=== PATIENT | female | born 1990 | race Caucasian/White ===

== ENCOUNTER → 2017-07-22 | Outpatient (CLI) | payer OTHER ==
[2017-07-22 14:20] LABS: ALBUMIN 3.6 GM/DL (3.2-5.2); ALBUMIN/GLOBULIN RATIO 0.97 (1.00-1.93); ALKALINE PHOSPHATASE 61 U/L (45-117); ALT/SGPT 28 U/L (12-78); ANION GAP 6 MEQ/L (8-16); AST/SGOT 16 U/L (7-37); BILIRUBIN,TOTAL 0.5 MG/DL (0.2-1.0); BLOOD UREA NITROGEN 15 MG/DL (7-18); CALCIUM LEVEL 8.9 MG/DL (8.5-10.1); CARBON DIOXIDE LEVEL 30 MEQ/L (21-32); CHLORIDE LEVEL 100 MEQ/L (98-107); CHOLESTEROL LEVEL 172 MG/DL (<200); CHOLESTEROL RISK RATIO 3.822 (<5); CREATININE FOR GFR 0.52 MG/DL (0.55-1.02); GLOMERULAR FILTRATION RATE > 60.0 (>60); GLUCOSE, FASTING 91 MG/DL (70-105); HDL CHOLESTEROL 45 MG/DL (>40); LDL CHOLESTEROL 93.4 MG/DL (<100); NON-HDL-C 127 MG/DL; POTASSIUM SERUM 4.4 MEQ/L (3.5-5.1); SODIUM LEVEL 136 MEQ/L (136-145); TOTAL PROTEIN 7.3 GM/DL (6.4-8.2); TRIGLYCERIDES LEVEL 168 MG/DL (<150)
== END ==
LOC: M WUC 10:26
DX: I10 Essential (primary) hypertension (principal)
CPT/HCPCS: 80053

== ENCOUNTER → 2018-04-22 | Outpatient (CLI) | payer OTHER ==
[2018-04-22 13:48] LABS: ALBUMIN 3.5 GM/DL (3.2-5.2); ALBUMIN/GLOBULIN RATIO 1.06 (1.00-1.93); ALKALINE PHOSPHATASE 62 U/L (45-117); ALT/SGPT 65 U/L (12-78); ANION GAP 7 MEQ/L (8-16); AST/SGOT 36 U/L (7-37); BILIRUBIN,TOTAL 0.5 MG/DL (0.2-1.0); BLOOD UREA NITROGEN 12 MG/DL (7-18); CALCIUM LEVEL 8.4 MG/DL (8.5-10.1); CARBON DIOXIDE LEVEL 29 MEQ/L (21-32); CHLORIDE LEVEL 101 MEQ/L (98-107); CHOLESTEROL LEVEL 160 MG/DL (<200); CHOLESTEROL RISK RATIO 4.571 (<5); GLOMERULAR FILTRATION RATE > 60.0 (>60); GLUCOSE, FASTING 84 MG/DL (70-100); HDL CHOLESTEROL 35 MG/DL (>40); LDL CHOLESTEROL 78 MG/DL (<100); NON-HDL-C 125 MG/DL; POTASSIUM SERUM 4.4 MEQ/L (3.5-5.1); SODIUM LEVEL 137 MEQ/L (136-145); TOTAL PROTEIN 6.8 GM/DL (6.4-8.2); TRIGLYCERIDES LEVEL 234 MG/DL (<150)
== END ==
LOC: M WUC 10:19
DX: I10 Essential (primary) hypertension (principal)
CPT/HCPCS: 80053

== ENCOUNTER → 2018-06-20 | Outpatient (REF) | payer OTHER ==
[2018-06-20 11:12] LABS: BASO # 0.1 10^3/uL (0.0-0.2); BASO % 0.9 % (0.0-1.0); HEMATOCRIT 40.6 % (36.0-47.0); HEMOGLOBIN 13.4 g/dl (12.0-15.5); IMMATURE GRANULOCYTE % 0.3 % (0-3.0); LYMPH # 3.1 10^3/uL (1.5-6.5); LYMPH % 30.6 % (24.0-44.0); MEAN CORPUSCULAR VOLUME 90.8 fl (80.0-96.0); MONO # 0.9 10^3/uL (0.0-0.8); MONO % 9.2 % (0.0-5.0); PLATELET COUNT, AUTOMATED 352 10^3/uL (150-450); RED BLOOD COUNT 4.47 10^6/uL (4.00-5.40); RED CELL DISTRIBUTION WIDTH 13.2 % (11.5-14.5); WHITE BLOOD COUNT 10.2 10^3/uL (4.0-10.0)
== END ==
LOC: M LAB REF 09:15
DX: R05 Cough (principal); R09.1 Pleurisy
CPT/HCPCS: 85025

== ENCOUNTER → 2018-06-20 | Outpatient (CLI) | payer OTHER | LOC: M ADAMS 08:39 | DX: R91.8 Other nonspecific abnormal finding of lung field (principal); R05 Cough; R09.1 Pleurisy | CPT/HCPCS: 71046 ==

== ENCOUNTER → 2019-06-06 | Outpatient (CLI) | payer OTHER ==
[~2019-06-06] MED LIST: ALBU8.5H; AMOX875T; CITA20TA6 PO; LABE10TAB PO; ZOLO25TA; ZOLO50TA
[2019-06-06 13:47] LABS: BASO % 0.4 % (0.0-1.0); HEMATOCRIT 35.5 % (36.0-47.0); HEMOGLOBIN 11.9 g/dl (12.0-15.5); LYMPH # 2.2 10^3/uL (1.5-5.0); MEAN CORPUSCULAR HEMOGLOBIN 29.8 pg (27.0-33.0); MEAN CORPUSCULAR HGB CONC 33.5 g/dl (32.0-36.5); MEAN CORPUSCULAR VOLUME 88.8 fl (80.0-96.0); MONO % 10.7 % (0.0-5.0); NEUTROPHILS # 5.9 10^3/uL (1.5-8.5); NEUTROPHILS % 64.7 % (36.0-66.0); PLATELET COUNT, AUTOMATED 364 10^3/uL (150-450); WHITE BLOOD COUNT 9.1 10^3/uL (4.0-10.0)
[2019-06-06 13:52] LABS: ALT/SGPT 21 U/L (12-78); BILIRUBIN,TOTAL 0.5 MG/DL (0.2-1.0); CREATININE FOR GFR 0.48 MG/DL (0.55-1.30); GLOMERULAR FILTRATION RATE > 60.0 (>60); LDH LACTATE DEHYDROGENASE 133 U/L (84-246); URIC ACID 2.9 MG/DL (2.6-6.0)
[2019-06-06 14:10] LABS: CREATININE,RANDOM URINE 65.4 MG/DL; TOTAL PROTEIN,RANDOM URINE 6.6 MG/DL (0.0-12.0)
[2019-06-06 16:37] LABS: CHLAMYDIA DNA AMPLIFICATION NEGATIVE (NEGATIVE); GC DNA AMPLIFICATION NEGATIVE (NEGATIVE)
[2019-06-07 10:18] LABS: HIV 1&2 SCREEN CENTAUR NEGATIVE (NEGATIVE)
[2019-06-07 11:48] LABS: RUBELLA IgG QUALITATIVE IMMUNE (IMMUNE)
== END ==
LOC: M SMT 10:37
PROVIDERS: ATTEND Advanced Practice Midwife
DX: O10.011 Pre-existing essential hypertension complicating pregnancy, first trimester (principal); Z3A.10 10 weeks gestation of pregnancy

== ENCOUNTER → 2019-08-15 | Outpatient (CLI) | payer OTHER ==
--- NOTE | 2019-08-16 05:04 | REP ---
Clinical: Anatomical evaluation. Comparison: 06/01/2019 . Findings: Examination demonstrates a single live intrauterine in transverse (head to maternal right) presentation. motion is identified by technologist. Placenta is noted anterior and grade I without evidence for placenta previa or abruption. Amniotic fluid volume is normal. Cervix measures 3.2 cm in length and appears closed. No evidence for nuchal cord. Gestational age by LMP 20 weeks 0 days with HI 01/02/2020 . Gestational age by current measurements 19 weeks 1 day with HI 01/09/2020 . FHR equals 153 beats per minute. BPD 4.5 cm 19 weeks 4 days HC 17.0 cm 19 weeks 4 days AC 13.8 cm 19 weeks 2 days FL 3.0 cm 19 weeks 1 day HL 3.0 cm 19 weeks 5 days HC/AC ratio 1.23 Estimated weight 282 grams ( 22nd percentile). Anatomical assessment demonstrates normal structures including cranium, choroid plexus, cavum, cerebellum/posterior fossa, ventricular outflow tracts, diaphragm, stomach, cord insertion/three-vessel cord, kidneys/bladder, spine, and extremities. Impression: 1. Single live intrauterine in transverse lie demonstrating appropriate interval growth. 2. Limited evaluation of the four-chamber heart and facial features.
== END ==
LOC: M WHC 10:52
PROVIDERS: ATTEND Advanced Practice Midwife
DX: Z34.92 Encounter for supervision of normal pregnancy, unspecified, second trimester (principal); Z3A.19 19 weeks gestation of pregnancy

== ENCOUNTER → 2019-08-18 | Outpatient (CLI) | payer OTHER | LOC: M PLALAB 12:07 | PROVIDERS: ATTEND Advanced Practice Midwife | DX: Z34.82 Encounter for supervision of other normal pregnancy, second trimester (principal) ==

== ENCOUNTER → 2019-09-01 | Outpatient (CLI) | payer OTHER ==
--- NOTE | 2019-09-01 10:56 | REP ---
Clinical: Anatomical evaluation. Comparison: 08/15/2019 Findings: Examination demonstrates a single live intrauterine in breech presentation. motion is identified by technologist. Placenta is noted anterior and grade zero without evidence for placenta previa or abruption. Amniotic fluid volume is normal. Cervix measures 4.2 cm in length and appears closed. No evidence for nuchal cord. Gestational age by LMP 22 weeks 3 days with HI 01/02/2020 . Gestational age by current measurements 22 weeks 0 days with HI 01/05/2020 . FHR equals 151 beats per minute. Estimated weight 480 grams ( 36th percentile). Anatomical assessment demonstrates four-chamber heart views. Impression: Single live intrauterine in breech presentation demonstrating appropriate interval growth. In conjunction with prior examination anatomical assessment is complete and normal.
== END ==
LOC: M WHC 09:07
PROVIDERS: ATTEND Advanced Practice Midwife
DX: O10.012 Pre-existing essential hypertension complicating pregnancy, second trimester (principal); Z3A.22 22 weeks gestation of pregnancy; O32.1XX0 Maternal care for breech presentation, not applicable or unspecified

== ENCOUNTER → 2019-10-04 | Outpatient (REF) | payer OTHER ==
[2019-10-04 13:41] LABS: HEMATOCRIT 31.8 % (36.0-47.0); HEMOGLOBIN 10.5 g/dl (12.0-15.5); MEAN CORPUSCULAR HEMOGLOBIN 30.5 pg (27.0-33.0); MEAN CORPUSCULAR VOLUME 92.4 fl (80.0-96.0); PLATELET COUNT, AUTOMATED 296 10^3/uL (150-450); RED BLOOD COUNT 3.44 10^6/uL (4.00-5.40); WHITE BLOOD COUNT 11.5 10^3/uL (4.0-10.0)
== END ==
LOC: M PLALAB 11:43
PROVIDERS: ATTEND Advanced Practice Midwife
DX: Z36.89 Encounter for other specified antenatal screening (principal)

== ENCOUNTER → 2019-10-11 | Outpatient (CLI) | payer OTHER | LOC: M LAB 06:58 | PROVIDERS: ATTEND Advanced Practice Midwife | DX: Z36.89 Encounter for other specified antenatal screening (principal) ==

== ENCOUNTER → 2019-10-24 | Outpatient (REF) | payer OTHER ==
[2019-10-24 17:49] LABS: APPEARANCE, URINE CLEAR (CLEAR); BACTERIA, URINE AUTO 1+ (NEGATIVE); BILIRUBIN, URINE AUTO NEGATIVE (NEGATIVE); BLOOD, URINE BLOOD NEGATIVE (NEGATIVE); COLOR, URINE YELLOW (YELLOW); GLUCOSE, URINE (UA) AUTO NEGATIVE (NEGATIVE); KETONE, URINE AUTO NEGATIVE (NEGATIVE); LEUKOCYTE ESTERASE, URINE AUTO NEGATIVE (NEGATIVE); NITRITE, URINE AUTO NEGATIVE (NEGATIVE); PROTEIN, URINE AUTO NEGATIVE (NEGATIVE); RBC, URINE AUTO 0 /HPF (0-3); SPECIFIC GRAVITY URINE AUTO 1.006 (1.002-1.035); SQUAMOUS EPITHELIAL CELL UR AU 1 /HPF (0-6); UROBILINOGEN, URINE AUTO 0.2 mg/dL (0.0-2.0); WBC, URINE AUTO 0 /HPF (0-3)
== END ==
LOC: M PLALAB 14:02
PROVIDERS: ATTEND Advanced Practice Midwife
DX: R30.9 Painful micturition, unspecified (principal)

== ENCOUNTER → 2019-10-30 | Outpatient (REF) | payer OTHER ==
[2019-10-30 15:43] LABS: HEMOGLOBIN 10.9 g/dl (12.0-15.5); MEAN CORPUSCULAR HEMOGLOBIN 29.9 pg (27.0-33.0); MEAN CORPUSCULAR VOLUME 90.7 fl (80.0-96.0); PLATELET COUNT, AUTOMATED 290 10^3/uL (150-450); RED BLOOD COUNT 3.64 10^6/uL (4.00-5.40); WHITE BLOOD COUNT 10.8 10^3/uL (4.0-10.0)
[2019-10-30 15:51] LABS: ALBUMIN 2.8 GM/DL (3.2-5.2); BILIRUBIN,DIRECT 0.1 MG/DL (0.0-0.2); BILIRUBIN,TOTAL 0.5 MG/DL (0.2-1.0); TOTAL PROTEIN 6.6 GM/DL (6.4-8.2)
== END ==
LOC: M PLALAB 11:45
PROVIDERS: ATTEND Advanced Practice Midwife
DX: O10.013 Pre-existing essential hypertension complicating pregnancy, third trimester (principal); O26.893 Other specified pregnancy related conditions, third trimester; R21 Rash and other nonspecific skin eruption; Z3A.00 Weeks of gestation of pregnancy not specified

== ENCOUNTER → 2019-11-07 | Outpatient (CLI) | payer OTHER ==
--- NOTE | 2019-11-08 04:36 | REP ---
Clinical: Growth evaluation. Comparison: 09/01/2019 . Findings: Examination demonstrates a single live intrauterine in breech presentation. motion is identified by technologist. Placenta is noted anterior and grade I I without evidence for placenta previa or abruption. Amniotic fluid volume is normal. Cervix measures 3.4 cm in length and appears closed. No evidence for nuchal cord. Gestational age by LMP 32 weeks 0 days with HI 01/02/2020 . Gestational age by current measurements 31 weeks 6 days with HI 01/03/2020 . FHR equals 142 beats per minute. Amniotic fluid index: 14.9 cm Estimated weight by current biometrical measurements 1982 grams ( 53rd percentile). Impression: Single live advanced gestation in breech presentation demonstrating appropriate estimated weight/growth. Amniotic fluid volume normal.
== END ==
LOC: M WHC 11:25
PROVIDERS: ATTEND Advanced Practice Midwife
DX: O10.013 Pre-existing essential hypertension complicating pregnancy, third trimester (principal)

== ENCOUNTER → 2019-11-28 | Outpatient (CLI) | payer OTHER ==
--- NOTE | 2019-11-29 02:53 | REP ---
Clinical: Anatomical evaluation. Comparison: Growth 11/07/2019 . Findings: Examination demonstrates a single live intrauterine in cephalic presentation. motion is identified by technologist. Placenta is noted anterior and grade I I I without evidence for placenta previa or abruption. Amniotic fluid volume is normal. Cervix measures 3.3 cm in length and appears closed. No evidence for nuchal cord. Gestational age by LMP 35 weeks 0 days with HI 01/02/2020 . Gestational age by current measurements 34 weeks 5 days with HI 01/04/2020 . FHR equals 134 beats per minute. Amniotic fluid index: 13.5 cm Estimated weight 2600 grams ( 50th percentile). Impression: Single live advanced gestation in cephalic presentation demonstrating appropriate estimated weight and growth.
== END ==
LOC: M WHC 10:58
PROVIDERS: ATTEND Advanced Practice Midwife
DX: O10.013 Pre-existing essential hypertension complicating pregnancy, third trimester (principal); Z3A.34 34 weeks gestation of pregnancy

== ENCOUNTER → 2019-12-19 | Outpatient (CLI) | payer OTHER ==
[~2019-12-19] MED LIST changes: +ASPI81CH33 PO; +OMEP-218 PO; +PRENTAB9 PO
--- NOTE | 2019-12-19 18:31 | REP ---
Clinical: Growth evaluation Comparison: 11/28/2019 . Findings: Examination demonstrates a single live intrauterine in cephalic presentation. motion is identified by technologist. Placenta is noted anterior and grade I I I without evidence for placenta previa or abruption. Amniotic fluid volume is normal. Cervix measures 3.1 cm in length and appears closed. No evidence for nuchal cord. Gestational age by LMP 38 weeks 0 days with HI 01/02/2020 . Gestational age by current measurements 37 weeks 2 days with HI 01/07/2020 . FHR equals 152 beats per minute. Amniotic fluid index: 15.6 cm Estimated weight 3460 grams ( 63rd percentile). Impression: Single live advanced gestation in cephalic presentation demonstrating appropriate interval growth. No gross abnormalities are identified.
== END ==
LOC: M WHC 11:03
PROVIDERS: ATTEND Advanced Practice Midwife
DX: O10.013 Pre-existing essential hypertension complicating pregnancy, third trimester (principal); Z3A.38 38 weeks gestation of pregnancy

== ENCOUNTER 2019-12-20 11:08 | Inpatient (IN) | payer OTHER ==
[~2019-12-20] VITALS: Ht 157.5 cm; Wt 97.7 kg
[2019-12-20] VITALS (10 sets, daily range): BP systolic 95–129; BP diastolic 51–79
[~2019-12-20 11:08] MED LIST changes: -ASPI81CH33 PO; -OMEP-218 PO; -PRENTAB9 PO
--- NOTE | 2019-12-20 12:10 | HPE ---
DATE OF ADMISSION: 12/20/2019 Kathrin is a 29-year-old 2, para 1-0-0-1 at 38-1/7 weeks gestation, estimated date of confinement (EDC) of 01/02/2020 based on last menstrual period and confirmed by first-trimester ultrasound. She presents to labor and delivery today for induction of labor due to chronic hypertension that has been well managed with oral labetalol. Her care was [facility] at [facility] in the first trimester. course has been complicated by anxiety, depression, chronic hypertension. She has been taking labetalol 100 mg twice a day and baby aspirin 81 mg. Former smoker. Today she denies painful contractions, vaginal bleeding, and leakage of fluid. The fetus has been active. OBSTETRICAL HISTORY: April 2008 at 39 weeks and 2/7 days, a 7-pounds 11-ounces female, vaginal delivery. OBSTETRIC LABORATORIES: A positive, antibody screen negative, RPR negative, hepatitis B surface antigen negative, HIV negative, hepatitis C antibody nonreactive, gonorrhea and chlamydia negative. Urine culture: No growth. Gestational diabetic screening was elevated at 179. Her 3-hour glucose tolerance test was normal, fasting 85, 1-hour 157, 2-hour 179, and 3-hour 114. Her GBS is negative. PAST MEDICAL HISTORY: 1. Abnormal Pap smear. 2. Attention deficit hyperactivity disorder (ADHD). 3. Heart palpitations. 4. Hypertension. 5. Depression. 6. Anxiety. SURGERIES: None. FAMILY HISTORY: Heart disease, breast cancer, ovarian cancer. SOCIAL HISTORY: She is single; however, the father of the baby is at bedside and supportive. She is a nonsmoker. She quit at the time of positive test. She denies alcohol and drug use. No history of sexually transmitted infections, and she denies history of abuse, physical, sexual and emotional. ALLERGIES: CECLOR, causing hives. CURRENT MEDICATIONS: - aspirin 81 mg daily - labetalol 100 mg twice a day - vitamin OBJECTIVE: A complete set of vital signs is yet to be taken. Her blood pressure is 101/60, and her pulse is 101. heart rate is 145. There is difficulty tracing the heart rate at this point due to body habitus. Moderate variability is present. There is no pattern of contractions. Her abdomen is gravid, cephalic presentation. Estimated weight 3500 grams. Sterile vaginal exam: 1 cm dilated, 50% effaced, -3 station, posterior and soft. No show with the exam. ASSESSMENT: Interim at 38-1/7 weeks. heart rate category 1. Chronic hypertension. PLAN: Admit the patient to labor and delivery. Routine labs. Saline lock at this time. Regular diet. Out of bed ad hector. I plan to start misoprostol 50 mcg by mouth every 4 hours for cervical ripening. The patient is requesting an epidural when she is in active labor. Will likely start intravenous (IV) Pitocin and consider artificial rupture of membranes (AROM) for labor augmentation. I did review risks, benefits, and alternatives. She and her partner's questions have been answered. She has been verbally consented for emergency surgery and blood products if they were necessary. I do anticipate cervical ripening.
[2019-12-20] MEDS: miSOPROStol 50 MCG 1/2 TAB (S0191) PO SCH ×2 (12:52→17:31)
[2019-12-20 12:59] LABS: HEMATOCRIT 30.5 % (36.0-47.0); HEMOGLOBIN 10.1 g/dl (12.0-15.5); MEAN CORPUSCULAR HGB CONC 33.1 g/dl (32.0-36.5); MEAN CORPUSCULAR VOLUME 87.6 fl (80.0-96.0); PLATELET COUNT, AUTOMATED 253 10^3/uL (150-450); RED BLOOD COUNT 3.48 10^6/uL (4.00-5.40); WHITE BLOOD COUNT 8.1 10^3/uL (4.0-10.0)
[2019-12-20] MEDS ORDERED: OMEP-218 PO (13:31)
[2019-12-20] MEDS ORDERED: PRENTAB9 PO (13:31)
[2019-12-20] MEDS ORDERED: ASPI81CH33 PO (13:31)
[2019-12-20] MEDS ORDERED: OXYTOCIN 30 UNITS IN 0.9% NaCl 500ML IV BAG (J2590) As Ordered ONE (21:41)
[2019-12-20] MEDS: LR 1,000 ML IV SCH (21:43)
[2019-12-20] MEDS ORDERED: OXYTOCIN DRIP 30 UNITS in IV 1 EA IV SCH (21:45)
[2019-12-21] VITALS (51 sets, daily range): BP systolic 92–137; BP diastolic 52–84
[2019-12-21] MEDS ORDERED: FENTANYL 2MCG/ML ROPIVACAINE 0.2% IN 0.9% NACL 100ML IVBAG As Ordered ONE (00:08)
[2019-12-21] MEDS: LR 1,000 ML IV SCH ×3 (00:54→19:16)
[2019-12-21] MEDS ORDERED: ONDANSETRON 4MG/2ML VIAL IV PRN (03:30)
[2019-12-21] MEDS ORDERED: LACTATED RINGER'S 1000 ML IV PRN (03:30)
[2019-12-21] MEDS ORDERED: NALOXONE INJ 0.4MG/1ML VIAL (J2310 PER 1MG) IV PRN (03:30)
[2019-12-21] MEDS ORDERED: FENTANYL/ROPIVACAINE/NACL BAG 100 ML EPIDURAL SCH (03:30)
[2019-12-21] MEDS ORDERED: EPIDURAL COMMENT XX SCH (03:30)
[2019-12-21] MEDS ORDERED: EPIDURAL/PCA KEYS XX PRN (03:30)
[2019-12-21] MEDS ORDERED: REFRIGERATOR IV KEYS XX PRN (03:30)
[2019-12-21] MEDS ORDERED: diphenhydrAMINE 50MG/ML VIAL (J1200) IV PRN (03:30)
[2019-12-21] MEDS ORDERED: ePHEDrine SULFATE 25 MG/5 ML(5MG/ML) SYRINGE IV PRN (03:30)
[2019-12-21] MEDS ORDERED: OXYTOCIN DRIP 30 UNITS in IV 1 EA IV SCH (11:16)
[2019-12-21] MEDS ORDERED: PROMETHAZINE 25 MG TAB PO PRN (11:30)
[2019-12-21] MEDS ORDERED: ACETAMINOPHEN 500 MG TAB PO PRN (11:30)
[2019-12-21] MEDS ORDERED: ACETAMINOPHEN TAB 650MG DOSE (2X325MG) PO PRN (11:30)
[2019-12-21] MEDS ORDERED: DIBUCAINE 1% OINTMENT 30GM TOP PRN (11:30)
[2019-12-21] MEDS ORDERED: MEASLES,MUMPS,RUBELLA VACCINE INJ (MMR-II) (90707) SC SCH (11:30)
[2019-12-21] MEDS ORDERED: IBUPROFEN 600 MG TAB PO PRN (11:30)
[2019-12-21] MEDS ORDERED: RHOGAM 300 MCG (1500 IU) INJ (J2790) IM SCH (11:30)
[2019-12-21] MEDS: PRENATAL VITAMINS CHEWABLE TABLET PO SCH (12:36)
[2019-12-21] MEDS: LABETALOL 100 MG TAB PO SCH ×2 (12:36→20:42)
[2019-12-21] MEDS: IBUPROFEN 800 MG TAB PO PRN ×2 (12:38→20:43)
[2019-12-21] MEDS: OMEPRAZOLE 20 MG CAP PO SCH (16:59)
[2019-12-22 06:00] VITALS: BP 102/55
[2019-12-22] MEDS: IBUPROFEN 800 MG TAB PO PRN (08:16)
[2019-12-22] MEDS: DOCUSATE SODIUM 100 MG CAP PO PRN ×2 (08:17→19:29)
[2019-12-22] MEDS: PRENATAL VITAMINS CHEWABLE TABLET PO SCH (08:17)
[2019-12-22] MEDS: OMEPRAZOLE 20 MG CAP PO SCH (08:17)
[2019-12-22] MEDS: LABETALOL 100 MG TAB PO SCH ×2 (08:18→20:35)
[2019-12-22 18:00] VITALS: BP 97/57
[2019-12-23 06:00] VITALS: BP 102/59
[2019-12-23] MEDS ORDERED: MOM 30ML SUSPENSION UDC PO PRN (06:45)
[2019-12-23 09:14] VITALS: BP 116/66
[2019-12-23] MEDS: LABETALOL 100 MG TAB PO SCH (09:14)
[2019-12-23] MEDS: PRENATAL VITAMINS CHEWABLE TABLET PO SCH (09:14)
[2019-12-23] MEDS: OMEPRAZOLE 20 MG CAP PO SCH (09:14)
== END 2019-12-23 12:25 | disposition home or self-care (01) | DRG 560 ==
LOC: M LDI 11:08 → M OBS 12-21 13:12
PROVIDERS: ADMIT Advanced Practice Midwife; ATTEND Advanced Practice Midwife
PROC: 10E0XZZ Delivery of Products of Conception, External Approach (ICD-10-PCS; principal; 2019-12-21)
PROC: 0KQM0ZZ Repair Perineum Muscle, Open Approach (ICD-10-PCS; 2019-12-21)
DX: O10.92 Unspecified pre-existing hypertension complicating childbirth (principal); O70.1 Second degree perineal laceration during delivery; O99.344 Other mental disorders complicating childbirth; Z37.0 Single live birth; Z3A.38 38 weeks gestation of pregnancy; F41.9 Anxiety disorder, unspecified; F32.9 Major depressive disorder, single episode, unspecified; Z87.891 Personal history of nicotine dependence

== ENCOUNTER → 2020-05-30 | Outpatient (REF) | payer OTHER ==
[~2020-05-30] MED LIST changes: +ASPI81CH33 PO; +OMEP-218 PO; +PRENTAB9 PO
== END ==
LOC: M SFHCWAGY 17:21
PROVIDERS: ATTEND Advanced Practice Midwife
DX: Z01.411 Encounter for gynecological examination (general) (routine) with abnormal findings (principal); Z12.4 Encounter for screening for malignant neoplasm of cervix

== ENCOUNTER → 2020-06-04 | Outpatient (REF) | payer OTHER ==
[2020-06-04 14:03] LABS: HEMATOCRIT 39.3 % (36.0-47.0); MEAN CORPUSCULAR HEMOGLOBIN 29.6 pg (27.0-33.0); MEAN CORPUSCULAR HGB CONC 33.1 g/dl (32.0-36.5); MEAN CORPUSCULAR VOLUME 89.5 fl (80.0-96.0); PLATELET COUNT, AUTOMATED 316 10^3/uL (150-450); RED BLOOD COUNT 4.39 10^6/uL (4.00-5.40); WHITE BLOOD COUNT 7.9 10^3/uL (4.0-10.0)
[2020-06-04 14:17] LABS: ALT/SGPT 29 U/L (12-78); BILIRUBIN,TOTAL 0.8 MG/DL (0.2-1.0); BLOOD UREA NITROGEN 13 MG/DL (7-18); CALCIUM LEVEL 9.2 MG/DL (8.5-10.1); CARBON DIOXIDE LEVEL 25 MEQ/L (21-32); CHLORIDE LEVEL 106 MEQ/L (98-107); CHOLESTEROL LEVEL 217 MG/DL (<200); CHOLESTEROL RISK RATIO 4.173 (<5); CREATININE FOR GFR 0.61 MG/DL (0.55-1.30); GLOMERULAR FILTRATION RATE > 60.0 (>60); GLUCOSE, FASTING 92 MG/DL (70-100); HDL CHOLESTEROL 52 MG/DL (>40); LDL CHOLESTEROL 143 MG/DL (<100); NON-HDL-C 165 MG/DL; POTASSIUM SERUM 4.4 MEQ/L (3.5-5.1); SODIUM LEVEL 139 MEQ/L (136-145); TRIGLYCERIDES LEVEL 110 MG/DL (<150)
[2020-06-04 14:48] LABS: HEMOGLOBIN A1c 5.1 %
== END ==
LOC: M PLALAB 09:40
PROVIDERS: ATTEND Advanced Practice Midwife
DX: Z01.411 Encounter for gynecological examination (general) (routine) with abnormal findings (principal)

== ENCOUNTER → 2020-09-03 | Outpatient (REF) | payer OTHER ==
[~2020-09-03] MED LIST changes: +LABE100T4 PO; -LABE10TAB PO
[2020-09-03 17:26] LABS: HEMATOCRIT 39.9 % (36.0-47.0); HEMOGLOBIN 13.3 g/dl (12.0-15.5); MEAN CORPUSCULAR HGB CONC 33.3 g/dl (32.0-36.5); MEAN CORPUSCULAR VOLUME 89.9 fl (80.0-96.0); PLATELET COUNT, AUTOMATED 329 10^3/uL (150-450); RED BLOOD COUNT 4.44 10^6/uL (4.00-5.40); WHITE BLOOD COUNT 7.8 10^3/uL (4.0-10.0)
[2020-09-03 17:56] LABS: ALBUMIN 4.2 GM/DL (3.2-5.2); ALT/SGPT 35 U/L (12-78); BLOOD UREA NITROGEN 9 MG/DL (7-18); CALCIUM LEVEL 9.8 MG/DL (8.5-10.1); CARBON DIOXIDE LEVEL 29 MEQ/L (21-32); CHLORIDE LEVEL 102 MEQ/L (98-107); FERRITIN 24 NG/ML (8-252); FOLATE > 24.0 NG/ML; FREE T4 1.03 NG/DL (0.76-1.46); GLOMERULAR FILTRATION RATE > 60.0 (>60); GLUCOSE, FASTING 96 MG/DL (70-100); POTASSIUM SERUM 4.3 MEQ/L (3.5-5.1); SODIUM LEVEL 138 MEQ/L (136-145); TOTAL 25(OH) VITAMIN D 23.4 NG/ML (30.0-100.0); TOTAL PROTEIN 7.5 GM/DL (6.4-8.2); VITAMIN B12 LEVEL 537 PG/ML
== END ==
LOC: M SFHCPLAZ 14:04
PROVIDERS: ATTEND Nurse Practitioner Family
DX: R00.2 Palpitations (principal); I10 Essential (primary) hypertension; R53.83 Other fatigue; K21.9 Gastro-esophageal reflux disease without esophagitis

== ENCOUNTER → 2020-09-10 | Outpatient (REF) | payer OTHER ==
[2020-09-10 13:49] LABS: CHOLESTEROL RISK RATIO 4.452 (<5)
[2020-09-10 13:58] LABS: MALB URINE SIEMENS 21.4 MG/L; MAU/CREAT RATIO 8.7 MCG/MG (0.0-30.0)
[2020-09-10 14:11] LABS: HEMOGLOBIN A1c 4.9 %
== END ==
LOC: M SFHCADAM 10:15
PROVIDERS: ATTEND Nurse Practitioner Family
DX: Z83.3 Family history of diabetes mellitus (principal); I10 Essential (primary) hypertension

== ENCOUNTER → 2021-05-19 | Outpatient (REF) | payer OTHER ==
[2021-05-19 13:50] LABS: BLOOD UREA NITROGEN 8 MG/DL (7-18); CALCIUM LEVEL 9.5 MG/DL (8.5-10.1); CARBON DIOXIDE LEVEL 27 MEQ/L (21-32); CHLORIDE LEVEL 104 MEQ/L (98-107); CHOLESTEROL LEVEL 207 MG/DL (<200); CREATININE FOR GFR 0.58 MG/DL (0.55-1.30); GLOMERULAR FILTRATION RATE > 60.0 (>60); GLUCOSE, FASTING 93 MG/DL (70-100); HDL CHOLESTEROL 52 MG/DL (>40); LDL CHOLESTEROL 130 MG/DL (<100); NON-HDL-C 155 MG/DL; POTASSIUM SERUM 4.6 MEQ/L (3.5-5.1); SODIUM LEVEL 136 MEQ/L (136-145); TRIGLYCERIDES LEVEL 126 MG/DL (<150)
[2021-05-19 13:54] LABS: TOTAL 25(OH) VITAMIN D 27.8 NG/ML (30.0-100.0)
== END ==
LOC: M SFHCADAM 10:21
PROVIDERS: ATTEND Nurse Practitioner Family
DX: E78.00 Pure hypercholesterolemia, unspecified (principal); I10 Essential (primary) hypertension

== ENCOUNTER → 2022-03-31 | Outpatient (REF) | payer OTHER ==
[~2022-03-31] MED LIST changes: -LABE100T4 PO; +LABE100T6 PO; +OMEP-173 PO; -OMEP-218 PO
[2022-03-31 13:14] LABS: BASO # 0.1 10^3/uL (0.0-0.2); BASO % 1.2 % (0.0-1.0); HEMATOCRIT 36.7 % (36.0-47.0); HEMOGLOBIN 11.9 g/dl (12.0-15.5); LYMPH # 2.6 10^3/uL (1.5-5.0); LYMPH % 37.8 % (24.0-44.0); MEAN CORPUSCULAR HEMOGLOBIN 28.6 pg (27.0-33.0); MEAN CORPUSCULAR HGB CONC 32.4 g/dl (32.0-36.5); MEAN CORPUSCULAR VOLUME 88.2 fl (80.0-96.0); MONO # 0.7 10^3/uL (0.0-0.8); MONO % 9.6 % (2.0-8.0); NEUTROPHILS # 3.5 10^3/uL (1.5-8.5); NEUTROPHILS % 51.3 % (36.0-66.0); PLATELET COUNT, AUTOMATED 372 10^3/uL (150-450); RED BLOOD COUNT 4.16 10^6/uL (4.00-5.40); WHITE BLOOD COUNT 6.8 10^3/uL (4.0-10.0)
[2022-03-31 14:20] LABS: ALBUMIN 3.9 GM/DL (3.2-5.2); ALT/SGPT 20 U/L (12-78); BILIRUBIN,TOTAL 0.6 MG/DL (0.2-1.0); BLOOD UREA NITROGEN 9 MG/DL (7-18); CALCIUM LEVEL 9.3 MG/DL (8.5-10.1); CARBON DIOXIDE LEVEL 28 MEQ/L (21-32); CHLORIDE LEVEL 104 MEQ/L (98-107); CHOLESTEROL LEVEL 184 MG/DL (<200); CHOLESTEROL RISK RATIO 4.088 (<5); CREATININE FOR GFR 0.56 MG/DL (0.55-1.30); GLOMERULAR FILTRATION RATE > 60.0 (>60); GLUCOSE, FASTING 85 MG/DL (70-100); HDL CHOLESTEROL 45 MG/DL (>40); LDL CHOLESTEROL 122 MG/DL (<100); NON-HDL-C 139 MG/DL; POTASSIUM SERUM 4.2 MEQ/L (3.5-5.1); SODIUM LEVEL 138 MEQ/L (136-145); TOTAL PROTEIN 6.9 GM/DL (6.4-8.2); TRIGLYCERIDES LEVEL 83 MG/DL (<150)
[2022-03-31 15:22] LABS: TOTAL 25(OH) VITAMIN D 29.8 NG/ML (30.0-100.0)
== END ==
LOC: M SFHCADAM 11:04
PROVIDERS: ATTEND Nurse Practitioner Family
DX: E55.9 Vitamin D deficiency, unspecified (principal); E78.00 Pure hypercholesterolemia, unspecified; I10 Essential (primary) hypertension; F41.1 Generalized anxiety disorder

== ENCOUNTER → 2023-09-08 | Outpatient (REF) | payer OTHER ==
[2023-09-08 13:09] LABS: BASO # 0.1 10^3/uL (0.0-0.2); BASO % 1.2 % (0.0-1.0); HEMATOCRIT 33.7 % (36.0-47.0); HEMOGLOBIN 10.5 g/dl (12.0-15.5); LYMPH # 2.3 10^3/uL (1.5-5.0); LYMPH % 31.4 % (24.0-44.0); MEAN CORPUSCULAR HEMOGLOBIN 26.2 pg (27.0-33.0); MEAN CORPUSCULAR HGB CONC 31.2 g/dl (32.0-36.5); MONO # 0.7 10^3/uL (0.0-0.8); MONO % 9.2 % (2.0-8.0); NEUTROPHILS # 4.3 10^3/uL (1.5-8.5); NEUTROPHILS % 58.1 % (36.0-66.0); PLATELET COUNT, AUTOMATED 391 10^3/uL (150-450); RED BLOOD COUNT 4.01 10^6/uL (4.00-5.40); WHITE BLOOD COUNT 7.3 10^3/uL (4.0-10.0)
[2023-09-08 13:39] LABS: ALBUMIN 4.1 G/DL (3.2-5.2); ALKALINE PHOSPHATASE 50 U/L (46-116); ALT/SGPT 14 U/L (7.0-40); AST/SGOT 10 U/L (<34); BILIRUBIN,TOTAL 0.4 MG/DL (0.3-1.2); BLOOD UREA NITROGEN 11 MG/DL (9-23); CALCIUM LEVEL 9.6 MG/DL (8.5-10.1); CARBON DIOXIDE LEVEL 28 MMOL/L (20-31); CHLORIDE LEVEL 105 MMOL/L (98-107); CHOLESTEROL LEVEL 221 MG/DL (<200); CHOLESTEROL RISK RATIO 3.58 (<5); CREATININE FOR GFR 0.57 MG/DL (0.55-1.30); GLOMERULAR FILTRATION RATE > 60.0 (>60); GLUCOSE, FASTING 90 MG/DL (60-100); HDL CHOLESTEROL 61.7 MG/DL (>40); LDL CHOLESTEROL 132.5 MG/DL (<100); NON-HDL-C 159.3 MG/DL; POTASSIUM SERUM 4.5 MMOL/L (3.5-5.1); SODIUM LEVEL 137 MMOL/L (136-145); THYROID STIMULATING HORMONE 1.659 uIU/ML (0.55-4.78); TOTAL PROTEIN 7.3 G/DL (5.7-8.2); TRIGLYCERIDES LEVEL 134 MG/DL (<150)
[2023-09-08 13:40] LABS: TOTAL 25(OH) VITAMIN D 16.4 NG/ML (20.0-100.0)
[2023-09-08 13:41] LABS: FREE T4 1.14 NG/DL (0.89-1.76)
== END ==
LOC: M SFHCADAM 09:21
PROVIDERS: ATTEND Nurse Practitioner Family
DX: E55.9 Vitamin D deficiency, unspecified (principal); E78.00 Pure hypercholesterolemia, unspecified; I10 Essential (primary) hypertension; F41.8 Other specified anxiety disorders

== ENCOUNTER → 2023-09-21 | Outpatient (REF) | payer OTHER ==
[2023-09-21 13:47] LABS: APPEARANCE, URINE HAZY (CLEAR); BACTERIA, URINE AUTO 1+ (NEGATIVE); BILIRUBIN, URINE AUTO NEGATIVE (NEGATIVE); BLOOD, URINE BLOOD NEGATIVE (NEGATIVE); COLOR, URINE YELLOW (YELLOW); GLUCOSE, URINE (UA) AUTO NEGATIVE (NEGATIVE); KETONE, URINE AUTO 1+ mg/dL (NEGATIVE); LEUKOCYTE ESTERASE, URINE AUTO NEGATIVE (NEGATIVE); NITRITE, URINE AUTO NEGATIVE (NEGATIVE); PROTEIN, URINE AUTO NEGATIVE (NEGATIVE); RBC, URINE AUTO 0 /HPF (0-3); SPECIFIC GRAVITY URINE AUTO 1.013 (1.002-1.035); SQUAMOUS EPITHELIAL CELL UR AU 3 /HPF (0-6); UROBILINOGEN, URINE AUTO 0.2 mg/dL (0.0-2.0); WBC, URINE AUTO 1 /HPF (0-3)
== END ==
LOC: M SFHCPLAZ 13:24
PROVIDERS: ATTEND Nurse Practitioner Family
DX: R39.9 Unspecified symptoms and signs involving the genitourinary system (principal)

== ENCOUNTER → 2023-10-27 | Outpatient (CLI) | payer OTHER | LOC: M SLEEP HO 11:03 | PROVIDERS: ATTEND Nurse Practitioner Family | DX: G47.9 Sleep disorder, unspecified (principal); R53.83 Other fatigue ==

== ENCOUNTER → 2024-08-16 | Outpatient (REF) | payer OTHER ==
[2024-08-16 13:00] LABS: BASO # 0.1 10^3/uL (0.0-0.2); BASO % 0.9 % (0.0-1.0); HEMATOCRIT 30.3 % (36.0-47.0); HEMOGLOBIN 9.2 g/dl (12.0-15.5); LYMPH # 2.3 10^3/uL (1.5-5.0); LYMPH % 35.4 % (24.0-44.0); MEAN CORPUSCULAR HEMOGLOBIN 24.1 pg (27.0-33.0); MEAN CORPUSCULAR HGB CONC 30.4 g/dl (32.0-36.5); MEAN CORPUSCULAR VOLUME 79.5 fl (80.0-96.0); MONO # 0.6 10^3/uL (0.0-0.8); MONO % 9.6 % (2.0-8.0); NEUTROPHILS # 3.4 10^3/uL (1.5-8.5); NEUTROPHILS % 53.9 % (36.0-66.0); PLATELET COUNT, AUTOMATED 497 10^3/uL (150-450); RED BLOOD COUNT 3.81 10^6/uL (4.00-5.40); WHITE BLOOD COUNT 6.4 10^3/uL (4.0-10.0)
[2024-08-16 13:37] LABS: ALBUMIN 4.4 G/DL (3.2-5.2); ALKALINE PHOSPHATASE 40 U/L (35-104); ALT/SGPT 22 U/L (7.0-40); AST/SGOT 11 U/L (<34); BILIRUBIN,TOTAL 0.8 MG/DL (0.3-1.2); BLOOD UREA NITROGEN 17 MG/DL (9-23); CALCIUM LEVEL 10.1 MG/DL (8.5-10.1); CARBON DIOXIDE LEVEL 27 MMOL/L (20-31); CHLORIDE LEVEL 106 MMOL/L (98-107); CHOLESTEROL LEVEL 240 MG/DL (<200); CHOLESTEROL RISK RATIO 4.53 (<5); CREATININE FOR GFR 0.57 MG/DL (0.55-1.30); GLOMERULAR FILTRATION RATE > 60.0 (>60); GLUCOSE, FASTING 95 MG/DL (60-100); HDL CHOLESTEROL 52.9 MG/DL (>40); LDL CHOLESTEROL 169.1 MG/DL (<100); NON-HDL-C 187.1 MG/DL; POTASSIUM SERUM 4.7 MMOL/L (3.5-5.1); SODIUM LEVEL 141 MMOL/L (136-145); TOTAL PROTEIN 7.7 G/DL (5.7-8.2); TRIGLYCERIDES LEVEL 90 MG/DL (<150)
== END ==
LOC: M SFHCADAM 08:56
PROVIDERS: ATTEND Nurse Practitioner Family
DX: E78.00 Pure hypercholesterolemia, unspecified (principal); I10 Essential (primary) hypertension; E55.9 Vitamin D deficiency, unspecified

== ENCOUNTER → 2024-09-01 | Outpatient (REF) | payer OTHER ==
[2024-09-01 14:47] LABS: BASO # 0.1 10^3/uL (0.0-0.2); BASO % 1.4 % (0.0-1.0); EOS # 0.1 10^3/uL (0.0-0.5); EOS % 0.8 % (0.0-3.0); HEMATOCRIT 30.3 % (36.0-47.0); HEMOGLOBIN 9.2 g/dl (12.0-15.5); LYMPH % 31.9 % (24.0-44.0); MEAN CORPUSCULAR HEMOGLOBIN 24.5 pg (27.0-33.0); MEAN CORPUSCULAR HGB CONC 30.4 g/dl (32.0-36.5); MEAN CORPUSCULAR VOLUME 80.6 fl (80.0-96.0); MONO # 0.5 10^3/uL (0.0-0.8); MONO % 8.2 % (2.0-8.0); NEUTROPHILS # 3.7 10^3/uL (1.5-8.5); NEUTROPHILS % 57.5 % (36.0-66.0); PLATELET COUNT, AUTOMATED 438 10^3/uL (150-450); RED BLOOD COUNT 3.76 10^6/uL (4.00-5.40); WHITE BLOOD COUNT 6.3 10^3/uL (4.0-10.0)
[2024-09-01 14:53] LABS: PERCENT SATURATION 4.6 % (13.2-45.0)
[2024-09-01 14:56] LABS: FERRITIN 3.3 NG/ML (7.3-270.7)
== END ==
LOC: M SFHCADAM 08:07
PROVIDERS: ATTEND Nurse Practitioner Family
DX: D64.9 Anemia, unspecified (principal)

== ENCOUNTER → 2024-09-05 | Outpatient (REF) | payer OTHER ==
[2024-09-07 12:13] LABS: HPV APTIMA Not Detected (Not Detected)
== END ==
LOC: M SFHCWAGY 13:11
PROVIDERS: ATTEND Nurse Practitioner Family
DX: Z12.4 Encounter for screening for malignant neoplasm of cervix (principal)

== ENCOUNTER → 2024-09-11 | Outpatient (CLI) | payer OTHER | LOC: M RAD 11:51 | PROVIDERS: ATTEND Nurse Practitioner Family | DX: N92.0 Excessive and frequent menstruation with regular cycle (principal); N83.291 Other ovarian cyst, right side ==